=== PATIENT | female | born 2000 | race Caucasian/White ===

== ENCOUNTER 2020-10-10 12:07 | Emergency (ER) | payer SELFPAY ==
[2020-10-10 12:39] LABS: Urine Blood 3+ (Negative); Urine Glucose Negative (Negative); Urine Protein Negative (Negative)
[2020-10-10 13:03] LABS: Absolute Lymphocytes (CBC) 2.1 K/uL (0.7-4.9); Basophils % 0.7 % (0-1.3); Hematocrit 36.7 % (36.0-45.0); Lymphocytes % 30.3 % (15.3-44.8); MPV 8.4 fL (7.6-11.3); RBC Red Blood Cell Count 4.39 M/uL (3.86-4.86)
[2020-10-10 13:23] LABS: BUN Blood Urea Nitrogen 10 mg/dL (7-18); Bicarbonate 25 mmol/L (21-32); Glucose Level 93 mg/dL (74-106); HCG, Quantitative 879 mIU/mL (1-3); Sodium Level 140 mmol/L (136-145)
--- NOTE | 2020-10-10 14:34 | RAD REPORT ---
EXAM DESCRIPTION: US - Transvaginal OB - 10/10/2020 2:04 pm CLINICAL HISTORY: Vaginal bleeding;Abd cramping, , beta HCG approximately 800 COMPARISON: No comparisons FINDINGS: No normal shaped gestational sac seen in the normal sized, retroflexed uterus. In the lowe r uterine segment there is an 18 millimeter heterogeneous hyperechoic mass. This could be an abnormal low positioned gestational sac implantation. No molar findings. Hypervascular fibroid is p ossible. No other endometrial or possible endometrial finding noted. Both ovaries are identified and show no suspicious findings. IMPRESSION: Heterogeneous hyperechoic 18 millimeter mass in the lower uterine segment could be an ab normal low implantation of a gestation. There is no normal sac, pole or yolk sac. Hypervascular fibroid or uterine mass are possible. No ovarian or adnexal finding. Continued follow-up is needed. Repeat imaging can be obtained along with serial beta HCG values to co nfirm passage for resolution of the lower uterine segment finding.
--- NOTE | 2020-10-10 15:08 | EDPHYS ---
Physician Documentation [facility] Name: Gema Barbosa Age: 19 yrs Sex: Female : 2000 Arrival Date: 10/10/2020 Time: 12:13 Bed 19 Private MD: ED Physician Del Contreras HPI: 10/10 15:38 This 19 yrs old Female presents to ER via Ambulatory with complaints of kb Vaginal Bleeding, + Preg <12wks. 15:38 The patient presents to the emergency department with vaginal bleeding, that is light, kb with clots. course: care: at a clinic, Leakage of Fluid: none appreciated, Ultrasound: the patient has not had an ultrasound, Risk/complications: no obvious risks or complications are appreciated. Previous pregnancies: in previous pregnancies patient has had. Associated signs and symptoms: Pertinent positives: vaginal bleeding. The patient has not experienced similar symptoms in the past. The patient has not recently seen a physician. Pt states she had an elective in May, had a normal period in June, then started bleeding on September 12, 2020 and hasn't stopped. Called OB, Dr Gautam, and made appt for the bleeding. States she took a test on Saturday that was positive so she came in to see if she was having a miscarriage. Reports passing clots intermittently and lower abd cramps. Denies fever. . 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 - Social history:: Smoking status: Patient reports the use of cigarette tobacco products, denies chronic smoking, but will smoke occasionally. ROS: 15:38 Constitutional: Negative for fever, chills, and weight loss. kb 15:38 Abdomen/GI: Positive for abdominal cramps, Negative for abdominal pain, nausea, vomiting, and diarrhea. 15:38 : Positive for vaginal bleeding. 15:38 All other systems are negative. Exam: 15:36 Constitutional: This is a well developed, well nourished patient who is awake, alert, kb and in no acute distress. Head/Face: Normocephalic, atraumatic. ENT: Moist Mucous membranes Cardiovascular: Regular rate and rhythm with a normal S1 and S2. No gallops, murmurs, or rubs. No pulse deficits. Respiratory: Respirations even and unlabored. No increased work of breathing, no retractions or nasal flaring. Skin: Warm, dry with normal turgor. Normal color. MS/ Extremity: Pulses equal, no cyanosis. Neurovascular intact. Full, normal range of motion. Neuro: Awake and alert, GCS 15, oriented to person, place, time, and situation. Moves all extremities. Normal gait. Psych: Awake, alert, with orientation to person, place and time. Behavior, mood, and affect are within normal limits. 15:36 Abdomen/GI: Inspection: abdomen appears normal, Bowel sounds: normal, in all quadrants, Palpation: soft, in all quadrants, mild abdominal tenderness, in the right lower quadrant and left lower quadrant. 15:36 : Pelvic Exam: External exam: is normal, Speculum exam: mild bleeding, no cervicitis, os that is open, no tissue in cervix is seen, no tissue in vagina is seen, discharge, bloody. Vital Signs: 12:21 BP 121 / 87; Pulse 87; Resp 16 S; Temp 97.8; Pulse Ox 100% ; Weight 122.47 kg; Height 5 iw ft. 11 in. (180.34 cm); Pain 5/10; 15:25 Pulse 85; Resp 16 S; Pulse Ox 100% on R/A; jd3 12:21 Body Mass Index 37.66 (122.47 kg, 180.34 cm) iw MDM: 12:34 Patient medically screened. kb 15:36 Data reviewed: vital signs, nurses notes. Data interpreted: Pulse oximetry: on room air kb is 100 %. Interpretation: normal. Counseling: I had a detailed discussion with the patient and/or guardian regarding: the historical points, exam findings, and any diagnostic results supporting the discharge/admit diagnosis, lab results, radiology results, the need for outpatient follow up, an OB/Gyne specialist, to return to the emergency department if symptoms worsen or persist or if there are any questions or concerns that arise at home. ED course: mild bleeding on exam. Pt will follow up with Dr Gautam at [facility] . 10/10 12:34 Order name: Quantitative Hcg; Complete Time: 13:25 kb 10/10 12:34 Order name: Abo/rh Typing; Complete Time: 13:52 kb 10/10 12:34 Order name: Basic Metabolic Panel; Complete Time: 13:25 kb 10/10 12:34 Order name: CBC with Diff; Complete Time: 13:08 kb 10/10 12:34 Order name: Urine Test (obtain specimen); Complete Time: 12:44 kb 10/10 12:34 Order name: IV Saline Lock; Complete Time: 12:57 kb 10/10 12:40 Order name: Urine Dipstick-Ancillary; Complete Time: 12:43 EDMS 10/10 12:40 Order name: Urine --Ancillary (enter results); Complete Time: 13:15 bd 10/10 12:43 Order name: US Transvaginal Ob; Complete Time: 14:41 kb 10/10 12:34 Order name: Labs collected and sent; Complete Time: 12:57 kb 10/10 12:34 Order name: NPO; Complete Time: 12:44 kb 10/10 12:34 Order name: Urine Dipstick-Ancillary (obtain specimen); Complete Time: 12:44 kb 10/10 14:45 Order name: Pelvic Exam Setup; Complete Time: 15:10 kb Administered Medications: 15:00 Drug: Tylenol 1000 mg Route: PO; jd3 16:00 Follow up: Response: No adverse reaction jd3 Disposition: 10/11 07:16 Co-signature as Attending Physician, Del Contreras MD I agree with the assessment and markell plan of care. Disposition: 10/10/20 15:08 Discharged to Home. Impression: Threatened . - Condition is Stable. - Discharge Instructions: Threatened Miscarriage, [id number], Pelvic Rest, Vaginal Bleeding During , First Trimester, [id number]. - Medication Reconciliation Form, Thank You Letter, Antibiotic Education, Prescription Opioid Use, Family Work Release form. - Follow up: Emergency Department; When: As needed; Reason: Worsening of condition. Follow up: Private Physician; When: 2 - 3 days; Reason: Recheck today's complaints, Continuance of care, Re-evaluation by your physician. Signatures: Dispatcher [employer] Duyen Kerr, LOG HOOKER-C LOG HOOKER-Ckb Del Contreras MD MD cha Williams, Irene, RN RN iw Montez Reyez, RN RN jd3 Corrections: (The following items were deleted from the chart) 10/10 12:35 12:35 HCG, Quantitative ordered. EDKS EDMS 12:35 12:35 ABO/RH typing ordered. EDKS EDMS 12:35 12:35 Basic Metabolic Panel ordered. EDKS EDKS 12:35 12:35 CBC with Automated Diff ordered. EDKS EDMS 16:08 15:08 10/10/2020 15:08 Discharged to Home. Impression: Threatened . Condition jd3 is Stable. Forms are Medication Reconciliation Form, Thank You Letter, Antibiotic Education, Prescription Opioid Use. Follow up: Emergency Department; When: As needed; Reason: Worsening of condition. Follow up: Private Physician; When: 2 - 3 days; Reason: Recheck today's complaints, Continuance of care, Re-evaluation by your physician. kb
--- NOTE | 2020-10-10 15:08 | ER ---
Nurse's Notes [facility] Name: Gema Barbosa Age: 19 yrs Sex: Female : 2000 Arrival Date: 10/10/2020 Time: 12:13 Bed 19 Private MD: Diagnosis: Threatened Presentation: 10/10 12:21 Chief complaint: Patient states: has been bleeding for about a month, is having heavy iw bleeding , took a home UPT and it was positive yesterday. Coronavirus screen: At this time, the client does not indicate any symptoms associated with coronavirus-19. Ebola Screen: Patient negative for fever greater than or equal to 101.5 degrees Fahrenheit, and additional compatible Ebola Virus Disease symptoms Patient denies exposure to infectious person. Patient denies travel to an Ebola-affected area in the 21 days before illness onset. No symptoms or risks identified at this time. Initial Sepsis Screen: Does the patient meet any 2 criteria? No. Patient's initial sepsis screen is negative. Does the patient have a suspected source of infection? No. Patient's initial sepsis screen is negative. Risk Assessment: Do you want to hurt yourself or someone else? Patient reports no desire to harm self or others. Onset of symptoms was August 2020. 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 - Social history:: Smoking status: Patient reports the use of cigarette tobacco products, denies chronic smoking, but will smoke occasionally. Screenin:42 Abuse screen: Denies threats or abuse. Nutritional screening: No deficits noted. jd3 Tuberculosis screening: No symptoms or risk factors identified. Fall Risk Ambulatory Aid- None/Bed Rest/Nurse Assist (0 pts). Gait- Normal/Bed Rest/Wheelchair (0 pts) Mental Status- Oriented to own ability (0 pts). Total Mcgovern Fall Scale indicates No Risk (0-24 pts). Assessment: 12:39 General: Appears in no apparent distress. comfortable, Behavior is calm, cooperative, jd3 appropriate for age. Pain: Complains of pain in abdomen Quality of pain is described as crampy. Neuro: Level of Consciousness is awake, alert, obeys commands, Oriented to person, place, time, situation. Cardiovascular: Denies chest pain, Capillary refill < 3 seconds Patient's skin is warm and dry. Respiratory: Airway is patent Respiratory effort is even, unlabored, Respiratory pattern is regular, symmetrical, Denies cough, shortness of breath. GI: Abdomen is round non-distended, Abd is soft and non tender X 4 quads. Reports nausea. : Reports vaginal bleeding that is heavy flow. EENT: No signs and/or symptoms were reported regarding the EENT system. Derm: Skin is intact, Skin is dry, Skin is normal, Skin temperature is warm. Musculoskeletal: Circulation, motion, and sensation intact. Range of motion: intact in all extremities. 14:08 Reassessment: Patient appears in no apparent distress at this time. No changes from jd3 previously documented assessment. Patient and/or family updated on plan of care and expected duration. Pain level reassessed. Patient is alert, oriented x 3, equal unlabored respirations, skin warm/dry/pink. 15:25 Reassessment: Patient appears in no apparent distress at this time. No changes from jd3 previously documented assessment. Patient and/or family updated on plan of care and expected duration. Pain level reassessed. Patient is alert, oriented x 3, equal unlabored respirations, skin warm/dry/pink. 16:06 Reassessment: Patient appears in no apparent distress at this time. Patient and/or jd3 family updated on plan of care and expected duration. Pain level reassessed. Patient is alert, oriented x 3, equal unlabored respirations, skin warm/dry/pink. Patient states feeling better. Vital Signs: 12:21 BP 121 / 87; Pulse 87; Resp 16 S; Temp 97.8; Pulse Ox 100% ; Weight 122.47 kg; Height 5 iw ft. 11 in. (180.34 cm); Pain 5/10; 15:25 Pulse 85; Resp 16 S; Pulse Ox 100% on R/A; jd3 12:21 Body Mass Index 37.66 (122.47 kg, 180.34 cm) iw ED Course: 12:13 Patient arrived in ED. ds1 12:23 Triage completed. iw 12:24 Arm band placed on. iw 12:25 Montez Reyez RN is Primary Nurse. jd3 12:34 Duyen Chun FNP-C is PHCP. kb 12:34 Del Contreras MD is Attending Physician. kb 12:43 Patient has correct armband on for positive identification. Placed in gown. Bed in low jd3 position. Call light in reach. Side rails up X 1. Adult w/ patient. Pulse ox on. NIBP on. 12:57 Inserted saline lock: 20 gauge in right antecubital area, using aseptic technique. jd3 Blood collected. 13:55 US Transvaginal Ob In Process Unspecified. EDMS 16:06 No provider procedures requiring assistance completed. IV discontinued, intact, jd3 bleeding controlled, No redness/swelling at site. Pressure dressing applied. Administered Medications: 15:00 Drug: Tylenol 1000 mg Route: PO; jd3 16:00 Follow up: Response: No adverse reaction jd3 Outcome: 15:08 Discharge ordered by MD. kb 16:06 Discharged to home ambulatory, with friend. jd3 16:06 Condition: stable 16:06 Discharge instructions given to patient, friend, Instructed on discharge instructions, follow up and referral plans. Demonstrated understanding of instructions, follow-up care. 16:08 Patient left the ED. jd3 Signatures: Dispatcher [employer] EDME Duyen Chun FNP-C FNP-Yakelin Barnett ds1 Ashlee Jimenez RN RN Montez Reyez RN RN jd3 Corrections: (The following items were deleted from the chart) 12:25 12:21 Pulse 87bpm; Resp 16bpm; Spontaneous; Pulse Ox 100%; Temp 97.8F; 122.47 kg; iw Height 5 ft. 11 in.; BMI: 37.6; Pain 5/10; iw
[2020-10-10] MEDS ORDERED: ACETAMINOPHEN 500 MG TAB ONE (15:16)
[2020-10-10 16:21] VITALS: BP 121/87; TEMP 97.8; O2SAT 100
== END 2020-10-10 16:08 | disposition home or self-care (01) ==
LOC: ER 12:07
DX: O20.0 Threatened abortion (principal); F17.210 Nicotine dependence, cigarettes, uncomplicated; Z3A.00 Weeks of gestation of pregnancy not specified
CPT/HCPCS: 36415; 76817; 80048; 81003; 81025; 84702; 85025; 86900; 86901; 99284